=== PATIENT | female | born 1995 | race Caucasian/White ===

== ENCOUNTER 2023-04-09 11:52 | Inpatient (IN) | payer MEDICAID, OTHER ==
[~2023-04-09] VITALS: Ht 157.5 cm; Wt 57.5 kg
[2023-04-09] VITALS (7 sets, daily range): BP systolic 128; BP diastolic 68; PULSE 72–97; RESP 16–18; TEMP 98; O2SAT 96–99
[2023-04-09] MEDS ORDERED: methylPREDNISolone SOD SUCC 125 MG/2 ML VL IV ONE (12:00)
[2023-04-09] MEDS ORDERED: ALBUTEROL SULF 2.5 MG/0.5ML(0.5%) NEB SOLN NEB ONE (12:00)
[2023-04-09] MEDS ORDERED: SODIUM CHLORIDE 0.9% 1,000 ML IV ONE (12:00)
[2023-04-09 12:25] LABS: Basophils # (auto) 0.1 10 ^3/uL (0-0.2); Basophils % (auto) 1.1 % (0.0-2.0); Eosinophils # (auto) 0.9 10 ^3/uL (0-0.8); Eosinophils % (auto) 11.5 % (0.0-7.0); Hematocrit 44.6 % (36.0-46.0); Hemoglobin 14.7 g/dL (12.2-16.2); Lymphocytes # (auto) 3.2 10 ^3/uL (0.4-5.4); Lymphocytes % (auto) 43.1 % (10.0-50.0); Mean Corpuscular Hemoglobin 29.6 pg (28.0-32.0); Mean Corpuscular Hgb Conc. 32.9 g/dL (32.0-36.0); Monocytes # (auto) 0.5 10 ^3/uL (0-1.3); Monocytes % (auto) 7.2 % (0.0-12.0); Neutrophils # (auto) 2.8 10 ^3/uL (1.6-8.6); Neutrophils % (auto) 37.1 % (37.0-80.0); Nucleated Red Blood Cells % 0.1 %; Red Blood Cells 4.96 10^6/uL (4.0-5.20); Red Cell Distribution Width 13.5 % (11.8-14.3); White Blood Cell 7.5 10^3/uL (4.4-10.8)
[2023-04-09 12:39] LABS: Chloride 105 mmol/L (98-107); Potassium 3.7 mmol/L (3.5-5.1); Sodium 139 mmol/L (136-145)
[2023-04-09 12:41] LABS: Anion Gap 12 (5-15); Carbon Dioxide 22 mmol/L (20-30)
[2023-04-09 12:42] LABS: Calcium 9.7 mg/dL (8.7-10.4)
[2023-04-09 12:46] LABS: Glucose 86 mg/dL (74-106)
[2023-04-09 12:47] LABS: Alkaline Phosphatase 64 U/L (46-116); BUN/Creatinine Ratio 14.4 (10.0-20.0); Blood Urea Nitrogen 13 mg/dL (9-23); Magnesium 1.8 mg/dL (1.6-2.6)
[2023-04-09 12:48] LABS: Alanine Aminotransferase 22 U/L (7-40); Albumin 4.7 g/dL (3.2-4.8); Aspartate Aminotransferase 24 U/L (13-40)
[2023-04-09 12:49] LABS: Bilirubin, Total 0.4 mg/dL (0.2-1.0); Total Protein 7.1 g/dL (5.7-8.2)
[2023-04-09] MEDS ORDERED: ACETAMINOPHEN 325 MG TAB PO PRN (16:15)
[2023-04-09] MEDS ORDERED: DOCUSATE SOD 100 MG CAP PO PRN (16:15)
[2023-04-09] MEDS ORDERED: ONDANSETRON HCL 4 MG/2 ML VIAL IV PRN (16:15)
[2023-04-09] MEDS: MAGNESIUM SULFATE 1GM/100ML 100 ML IV SCH ×3 (17:22→20:26)
[2023-04-09] MEDS: ALBUTEROL SULF 2.5 MG/0.5ML(0.5%) NEB SOLN NEB SCH ×2 (17:51→22:27)
[2023-04-09] MEDS: methylPREDNISolone SOD SUCC 40 MG/ML VL IV SCH ×2 (18:00→22:09)
[2023-04-09 18:28] LABS: COVID19 ANTIGEN SOFIA FIA NEGATIVE (NEGATIVE); Rapid Influenza A Negative (Negative); Rapid Influenza B Negative (Negative)
[2023-04-10] MEDS: ALBUTEROL SULF 2.5 MG/0.5ML(0.5%) NEB SOLN NEB SCH ×2 (05:50→10:12)
[2023-04-10 05:53] VITALS: PULSE 72; RESP 16; O2SAT 98
[2023-04-10 06:03] VITALS: PULSE 80; RESP 16; O2SAT 100
[2023-04-10 06:46] LABS: Alanine Aminotransferase 17 U/L (7-40); Albumin 4.6 g/dL (3.2-4.8); Alkaline Phosphatase 61 U/L (46-116); Anion Gap 11 (5-15); Aspartate Aminotransferase 17 U/L (13-40); BUN/Creatinine Ratio 13.4 (10.0-20.0); Bilirubin, Total 0.5 mg/dL (0.2-1.0); Blood Urea Nitrogen 11 mg/dL (9-23); Calcium 9.3 mg/dL (8.7-10.4); Carbon Dioxide 20 mmol/L (20-30); Chloride 107 mmol/L (98-107); Glucose 126 mg/dL (74-106); Potassium 4.6 mmol/L (3.5-5.1); Sodium 138 mmol/L (136-145); Total Protein 7.3 g/dL (5.7-8.2)
[2023-04-10 06:55] LABS: Basophils # (auto) 0 10 ^3/uL (0-0.2); Basophils % (auto) 0.1 % (0.0-2.0); Eosinophils # (auto) 0 10 ^3/uL (0-0.8); Hematocrit 41.6 % (36.0-46.0); Hemoglobin 13.7 g/dL (12.2-16.2); Lymphocytes % (auto) 8.9 % (10.0-50.0); Mean Corpuscular Hemoglobin 30.1 pg (28.0-32.0); Mean Corpuscular Hgb Conc. 32.8 g/dL (32.0-36.0); Mean Corpuscular Volume 91.7 fL (80.0-100.0); Monocytes # (auto) 0.4 10 ^3/uL (0-1.3); Monocytes % (auto) 3.1 % (0.0-12.0); Neutrophils # (auto) 9.9 10 ^3/uL (1.6-8.6); Neutrophils % (auto) 87.9 % (37.0-80.0); Red Blood Cells 4.54 10^6/uL (4.0-5.20); Red Cell Distribution Width 13.8 % (11.8-14.3); White Blood Cell 11.2 10^3/uL (4.4-10.8)
[2023-04-10 07:30] VITALS: PULSE 93; RESP 15; TEMP 98.2; O2SAT 98
[2023-04-10 10:14] VITALS: PULSE 89; RESP 16; O2SAT 97
[2023-04-10 10:24] VITALS: PULSE 99; RESP 16; O2SAT 100
[2023-04-10 11:00] VITALS: BP 120/75; PULSE 92; RESP 16; O2SAT 98
== END 2023-04-10 11:06 | disposition left against medical advice (07) | DRG 133 ==
LOC: ER 11:52 → EDBD 11:52 → OVERFLOW 16:10
PROVIDERS: ADMIT Nurse Practitioner Family; ATTEND Family Medicine
DX: J96.21 Acute and chronic respiratory failure with hypoxia (principal); J45.901 Unspecified asthma with (acute) exacerbation; Z53.21 Procedure and treatment not carried out due to patient leaving prior to being seen by health care provider; Z91.010 Allergy to peanuts; Z20.822 Contact with and (suspected) exposure to COVID-19
CPT/HCPCS: 36415; 71045; 80053; 83735; 84484; 84702; 85025; 87426; 87804; 93005; 99291; G0378

== ENCOUNTER 2023-04-28 15:12 | Emergency (ER) | payer SELFPAY ==
[~2023-04-28] VITALS: Ht 157.5 cm; Wt 57.2 kg
[2023-04-28 15:15] VITALS: PULSE 120; RESP 22; TEMP 97.7; O2SAT 98
[2023-04-28] MEDS: DexAMETHasone SOD PHOS 10MG/1ML VIAL INJ IV ONE (15:18)
[2023-04-28] MEDS: ALBUTEROL SULF 2.5 MG/0.5ML(0.5%) NEB SOLN NEB ONE (15:49)
[2023-04-28 16:56] LABS: Basophils # (auto) 0 10 ^3/uL (0-0.2); Basophils % (auto) 0.5 % (0.0-2.0); Chloride 101 mmol/L (98-107); Eosinophils # (auto) 0.6 10 ^3/uL (0-0.8); Eosinophils % (auto) 8.4 % (0.0-7.0); Hematocrit 45.1 % (36.0-46.0); Hemoglobin 14.9 g/dL (12.2-16.2); Lymphocytes # (auto) 3.5 10 ^3/uL (0.4-5.4); Lymphocytes % (auto) 50.5 % (10.0-50.0); Mean Corpuscular Volume 90.7 fL (80.0-100.0); Monocytes # (auto) 0.6 10 ^3/uL (0-1.3); Monocytes % (auto) 8.4 % (0.0-12.0); Neutrophils # (auto) 2.2 10 ^3/uL (1.6-8.6); Neutrophils % (auto) 32.2 % (37.0-80.0); Nucleated Red Blood Cells % 0.2 %; Red Blood Cells 4.97 10^6/uL (4.0-5.20); Red Cell Distribution Width 13.9 % (11.8-14.3); Sodium 138 mmol/L (136-145); White Blood Cell 6.9 10^3/uL (4.4-10.8)
[2023-04-28 16:57] LABS: Anion Gap 13 (5-15); Calcium 11.4 mg/dL (8.5-10.1); Carbon Dioxide 24 mmol/L (20-30)
[2023-04-28 17:02] LABS: BUN/Creatinine Ratio 10.1 (10.0-20.0); Blood Urea Nitrogen 9 mg/dL (9-23); Glucose 84 mg/dL (74-106)
[2023-04-28] MEDS ORDERED: METH4PAK PO (17:09)
[2023-04-28] MEDS ORDERED: MONT5CHW12 PO (17:09)
[2023-04-28] MEDS ORDERED: ALBUAER3 IN (17:09)
[2023-04-28] MEDS ORDERED: ALBU0.084 NEB (17:09)
[2023-04-28 17:42] VITALS: BP 115/85; PULSE 100; RESP 17; O2SAT 97
== END 2023-04-28 17:44 | disposition home or self-care (01) ==
LOC: ER 15:12 → EDBD 15:12 → ER 17:44
DX: J45.909 Unspecified asthma, uncomplicated (principal); R10.2 Pelvic and perineal pain
CPT/HCPCS: 36415; 80048; 84702; 85025; 93005; 94640; 96374; 99284; J1100